=== PATIENT | female | born 1990 | race African-American/Black ===

== ENCOUNTER 2017-03-28 07:11 | Inpatient (IN) ==
[2017-03-28] MEDS: LACTATED RINGERS 1,000 ML IV SCH ×2 (07:47→16:32)
[2017-03-28] MEDS ORDERED: ceFAZolin 2,000 MG in PREMIX 1 EACH IV ONE (08:02)
[2017-03-28] MEDS ORDERED: FAMOTIDINE 20 MG/2 ML VIAL IV ONE (08:02)
[2017-03-28] MEDS ORDERED: CITRIC ACID/SODIUM CITRATE 30 ML UDCUP PO ONE (08:02)
[2017-03-28] MEDS ORDERED: OXYTOCIN/LR 30 UNIT/1,000 ML BAG IV ONE (08:07)
[2017-03-28] MEDS ORDERED: OXYTOCIN 10 UNIT/ML VIAL IM ONE (08:07)
[2017-03-28] MEDS ORDERED: OXYTOCIN/LR 20 UNIT/1,000 ML BAG IV ONE ×2 (08:10→14:32)
--- NOTE | 2017-03-28 08:12 | OB/GYN History & Physical ---
History of Present Illness Chief complaint: In for repeat section. History of present illness: Ms. Man is a 26 year old female MARGARITO 917 for an estimated gestational age of 39 weeks and 2 days. The patient presents for elective repeat section due to previous section 3. She received her at the [facility]. Her course was uneventful and she received routine care. The risk and benefits has been thoroughly discussed with this patient and significant other, plan of care has been discussed with Dr. Mchugh and all parties are in agreement with plan. The patient has had 3 previous section she reported no complications with her pregnancies. lab: She is O+, rubella is immune, RPR is nonreactive, hepatitis B is negative, HIV is negative, GBS culture positive. Review of systems is negative with exception of previous section 3. Home Medications Medication Instructions Recorded Confirmed Type No Known Home Medications [No 01/20/17 01/20/17 History Known Home Medications] Allergies Allergy/AdvReac Type Severity Reaction Status Date / Time No Known Allergies Allergy Verified 01/20/17 01:13 12 point system: reviewed and no additional remarkable complaints except as stated Medical,Surgical,& Family Hx - Medical History Neurology: History of: Seizures Reproductive: History of: Sexually Transmitted Disorders (Chlamydia) - Surgical History Abdominal Surgeries: Surgical HX of: Abdominal Surgery Reproductive Surgeries: Surgical HX of;: Section (Previous 3) - Family History Family History: Reports;: Family Cancer (Father prostate), Family Diabetes ( Father), Family Hypertension (Father) - Social History Smoking Status: Never smoker Have you smoked in the last 12 months: No Marital Status: Single Lives With:: Significant Other Functional capacity: independent ambulation 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 General appearance: no acute distress - Antepartum / Post Antepartum Exam Cervix - Dilatation: Deferred Abdomen obstetrics: Present: bowel sounds normal Vagina: Present: normal moisture Uterus exam: Present: enlarged - Respiratory Respiratory exam: Present: clear to auscultation bilaterally - Cardiovascular Cardiovascular exam: Present: regular rate and rhythm - GI/Abdominal GI/Abdominal exam: Present: normal bowel sounds, soft - Extremities Exam Extremities exam: Present: normal inspection - Neurological Exam Neurological exam: Present: alert, oriented X3 - Psychiatric Psychiatric exam: Present: normal affect, normal mood - Skin Skin exam: Present: normal color, warm Assessment and Plan (1) Previous section Status: Acute Assessment and plan: Admit IV fluids Informed consent and preop for repeat section per Dr. Mchugh Anticipate delivery of a viable . Current Visit: Yes
[2017-03-28 08:29] LABS: Basophils % 0.4 % (0.0-0.8); Eosinophils # 0.2 10*3/uL (0.0-0.87); Eosinophils % 2.9 % (0.00-10.9); Hematocrit 33.9 VOL% (35.7-47.0); Immature Granulocytes % 0.3 %; Immature Granulocytes Absolute 0.02 #; Lymphocytes # 2.5 10*3/uL (1.4-4.0); Lymphocytes % 34.3 % (21.3-54.2); Mean Corpuscular HGB Conc 32.4 GM/DL (32-36); Mean Corpuscular Hemoglobin 28 PG (27-34); Mean Corpuscular Volume 85.6 FL (87-102); Mean Platelet Volume 9.9 FL (9.6-12.0); Monocytes # 0.7 10*3/uL (0.11-0.8); Monocytes % 9.1 % (1.7-12.7); Neutrophils # 3.8 10*3/uL (1.4-7.4); Platelet Count 251 T/CUMM (130-400); Red Blood Count 3.96 MC/CUMM (3.8-5.5); White Blood Count 7.2 T/CUMM (4-12)
[2017-03-28 08:56] LABS: Albumin 2.7 G/DL (3.4-5.0); Bilirubin,Total 0.7 MG/DL (0.2-1.0); Osmolality,Calculated 274.4 MOS/KG (273-304); Potassium 4.4 MMOL/L (3.5-5.1); Total Protein 7.1 G/DL (6.4-8.3)
[2017-03-28 09:01] LABS: Apearance,Urine CLEAR (Clear); Bilirubin,Urine Negative (Negative); Blood, Urine Negative (Negative); Glucose,Urine (UA) Negative (Negative); Ketones,Urine Negative (Negative); Mucus,Urine Occasional /LPF (Occasional); Nitrite,Urine Negative (Negative); Protein,Urine Negative; RBC,Urine 1 /HPF (0-4); Squamous Epithelial Cell,Urine Occasional /HPF (0-10); Urine Color Yellow (Yellow); Urine Specific Gravity 1.017 (1.001-1.035); WBC,Urine 1 /HPF (0-6)
[2017-03-28] MEDS ORDERED: ONDANSETRON 4 MG/2 ML VIAL ONE (13:07)
[2017-03-28] MEDS ORDERED: PHENYLEPHRINE 1 MG/10 ML SYRINGE IV ONE (13:07)
--- NOTE | 2017-03-28 14:31 | Operative Note ---
Date of procedure: 03/28/17 Procedure: Preoperative diagnosis: Elective sterilization, repeat section Postoperative diagnosis: Same Anesthesia:[] Regional anesthesia Estimated blood loss: [] 500 Surgeon: Dr. Mchugh Findings: [] Severe abdominal uterine bowel omental adhesions obliterating the abdominal wall, 7 lbs. 2 oz. , Apgars is 91 minute 9 at 5 minute, was at 1351, Complications: None Procedure: Low transverse section, bilateral tubal ligations, lysis of abdominal wall adhesions The patient was taken to the operating suite heart tones were obtained prior to and after regional anesthesia was obtained. She was placed in supine position her abdomen was prepped and draped in usual manner for major abdominal surgery. Through an abdominal incision the skin, subcutaneous, fascial layer and peritoneal the abdomen was entered. The bladder flap was created and a low transverse incision was made.. Fluid was clear and normal amount X, Apgars, the placenta was delivered and sent to lab for further evaluation. Injected with intrauterine Pitocin. The first layer of the uterus was closed with #1 Vicryl in a continuous locking manner. Close to imbricate the first layer with #1 Vicryl. The peritoneum was approximated with #2-0 Vicryl.[Fallopian tube were grasped with a Anayeli clamp. Into the avascular region the was perforated. Proximal distal end of tube was ligated. Segment in between was excised and cauterized] All the last sponges and instruments were accounted for -2.) #2-0 Vicryl. Fascia was approximated with #0-0 Maxon.. The skin was approximated with lyla. She tolerated procedure well and was taken to recovery room in stable condition. Surgeon / Physician: Jose Mchugh Results - Labs CBC & BMP: 03/28/17 08:18 03/28/17 08:18 Discharge Plan - Discharge Medications No Action Vits #90/Iron Fum/FA [ Formula Tablet] 1 tablet PO DAILY - Follow Up or Referral - Forms/Instructions
[2017-03-28] MEDS ORDERED: SIMETHICONE CHEW 80 MG TABLET PO PRN (14:32)
[2017-03-28] MEDS ORDERED: RHO(D) IMMUNE GLOBULIN 300 MCG SYRINGE IM ONE (14:32)
[2017-03-28] MEDS ORDERED: ACETAMINOPHEN 325 MG TABLET PO PRN (14:32)
[2017-03-28] MEDS ORDERED: ONDANSETRON 4 MG/2 ML VIAL IV PRN (14:32)
[2017-03-28] MEDS ORDERED: fentaNYL 100 MCG/2 ML VIAL ONE (14:40)
[2017-03-28 14:45] LABS: Cord Venous Blood HCO3 20.5 MMOL/L; Cord Venous Blood PCO2 51.9 MMHG; Cord Venous Blood PO2 22.9
[2017-03-28] MEDS ORDERED: HYDROmorphone 2 MG/1 ML VIAL IV PRN (14:45)
--- NOTE | 2017-03-28 14:46 | Anesthesia Post-Op ---
Anesthesia Post OP - Post Ansesthetic Evaluation Patient seen in post op: Yes Resp: within normal limits CV: within normal limits Mental: within normal limits Temp: within normal limits Xlim-Il-Kevqnkxdm: within normal limits Nausea and Vomiting: within normal limits Pain: within normal limits
[2017-03-28] MEDS ORDERED: MORPHINE 10 MG/10 ML VIAL ONE (14:53)
[2017-03-28] MEDS: IBUPROFEN 800 MG TABLET PO PRN (16:45)
[2017-03-28] MEDS ORDERED: PROMETHAZINE 25 MG/1 ML VIAL IM PRN (20:29)
[2017-03-28 22:06] LABS: Basophils % 0.2 % (0.0-0.8); Eosinophils % 0.1 % (0.00-10.9); Hematocrit 23.1 VOL% (35.7-47.0); Hemoglobin 7.8 GM/DL (12.0-16.0); Immature Granulocytes % 0.4 %; Immature Granulocytes Absolute 0.05 #; Lymphocytes # 1.7 10*3/uL (1.4-4.0); Lymphocytes % 13.1 % (21.3-54.2); Mean Corpuscular HGB Conc 33.8 GM/DL (32-36); Mean Corpuscular Hemoglobin 29 PG (27-34); Mean Corpuscular Volume 84.9 FL (87-102); Mean Platelet Volume 9.5 FL (9.6-12.0); Monocytes # 1.4 10*3/uL (0.11-0.8); Monocytes % 10.5 % (1.7-12.7); Neutrophils % 75.7 % (38.7-73.9); Platelet Count 250 T/CUMM (130-400); Red Blood Count 2.72 MC/CUMM (3.8-5.5); Red Cell Distribution Width 14.1 % (9.3-17.3); White Blood Count 13.2 T/CUMM (4-12)
[2017-03-29] MEDS: LACTATED RINGERS 1,000 ML IV SCH ×2 (01:30→10:43)
[2017-03-29 04:59] LABS: Basophils % 0.1 % (0.0-0.8); Eosinophils % 0.1 % (0.00-10.9); Hematocrit 20.6 VOL% (35.7-47.0); Hemoglobin 6.8 GM/DL (12.0-16.0); Immature Granulocytes % 0.4 %; Immature Granulocytes Absolute 0.04 #; Lymphocytes # 1.2 10*3/uL (1.4-4.0); Lymphocytes % 10.5 % (21.3-54.2); Mean Corpuscular Hemoglobin 29 PG (27-34); Mean Corpuscular Volume 86.2 FL (87-102); Mean Platelet Volume 9.7 FL (9.6-12.0); Monocytes # 1.1 10*3/uL (0.11-0.8); Monocytes % 10.2 % (1.7-12.7); Neutrophils # 8.6 10*3/uL (1.4-7.4); Neutrophils % 78.7 % (38.7-73.9); Platelet Count 227 T/CUMM (130-400); Red Blood Count 2.39 MC/CUMM (3.8-5.5); Red Cell Distribution Width 13.9 % (9.3-17.3)
[2017-03-29 05:23] LABS: Band Neutrophils 6 % (0-10); Eosinophils 1 % (0-10); Hypochromasia 1+; Lymphocytes 12 % (20-55); Microcytosis 1+; Polychromasia Slight; Segmented Neutrophils 74 % (50-85); Total Cells Counted 100
[2017-03-29 05:24] LABS: Platelet Estimate Normal
[2017-03-29] MEDS ORDERED: SODIUM CHLORIDE 0.9% 250 ML IV PRN (06:55)
[2017-03-29] MEDS: DOCUSATE SODIUM 100 MG CAPSULE PO SCH ×3 (07:14→21:03)
[2017-03-29] MEDS: MULTIVITAMIN (PRENATAL) TABLET PO SCH (09:35)
[2017-03-29] MEDS: IBUPROFEN 800 MG TABLET PO PRN (09:36)
--- NOTE | 2017-03-29 09:37 | OB/GYN Progress Note ---
Assessment and Plan (1) Previous section Status: Acute Assessment and plan: Admit IV fluids Informed consent and preop for repeat section per Dr. Mchugh Anticipate delivery of a viable . Current Visit: Yes (2) Status post repeat low transverse section Status: Acute Assessment and plan: Initiate routine postop orders. 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 Bonding well with . Exam BEAM RACKER - Constitutional Vitals: Vital Signs Temp Pulse Pulse Resp BP BP Pulse Ox 03/29/17 09:31 98.1 F 80 20 107/58 100 03/29/17 07:28 97.4 F L 74 18 112/55 03/29/17 03:00 18 03/28/17 19:30 97.1 F L 72 18 88/51 03/28/17 18:30 59 L 18 101/54 03/28/17 17:30 53 L 18 109/54 03/28/17 17:00 50 L 18 120/69 03/28/17 16:30 96.7 F L 50 L 18 123/56 Pulse Ox 03/29/17 09:31 03/29/17 07:28 99 03/29/17 03:00 03/28/17 19:30 99 03/28/17 18:30 99 03/28/17 17:30 100 03/28/17 17:00 100 03/28/17 16:30 100 General appearance: no acute distress - Antepartum / Post Post Exam Breast: bilateral: normal Abdomen obstetrics: Present: bowel sounds normal Vagina: Present: normal moisture, discharge (Light lochia room) Cervix: Present: normal Uterus exam: Present: enlarged (Fundus firm midline) - Gyencological / Post Surgical Post Surgical Exam Lungs: bilateral: normal Chest: Normal S1, Normal S2 Extremities BEAM RACKER: Present: normal Abdomen obstetrics progress note: Present: normal appearance, soft Incision OB: Present: normal, intact - Respiratory Respiratory exam: Present: clear to auscultation bilaterally - Cardiovascular Cardiovascular exam: Present: regular rate and rhythm - GI/Abdominal GI/Abdominal exam: Present: normal bowel sounds, soft - Extremities Exam Extremities exam: Present: normal inspection - Neurological Exam Neurological exam: Present: alert, oriented X3 - Psychiatric Psychiatric exam: Present: normal affect, normal mood - Skin Skin exam: Present: normal color, warm Results - Labs CBC & BMP: 03/29/17 04:34 03/28/17 08:18
[2017-03-29] MEDS: FERROUS SULFATE 325 MG TABLET PO SCH ×2 (10:18→21:03)
[2017-03-29 15:41] LABS: Hematocrit 31.8 VOL% (35.7-47.0); Hemoglobin 11.1 GM/DL (12.0-16.0)
[2017-03-29] MEDS: MAGNESIUM HYDROXIDE SUSP 30 ML UDCUP PO PRN (21:03)
[2017-03-30] MEDS: MULTIVITAMIN (PRENATAL) TABLET PO SCH (09:11)
[2017-03-30] MEDS: FERROUS SULFATE 325 MG TABLET PO SCH (09:12)
[2017-03-30] MEDS: MAGNESIUM HYDROXIDE SUSP 30 ML UDCUP PO PRN (09:12)
[2017-03-30] MEDS: DOCUSATE SODIUM 100 MG CAPSULE PO SCH (09:12)
--- NOTE | 2017-03-30 10:31 | Discharge Summary ---
Hospital Course - Hospital Course Hospital Course: Ms. Man presented for a repeat section due to previous section. She also had a bilateral tubal ligation. She has followed a routine postoperative course with the exception of being anemic. She did receive 2 units of packed red blood cells because of this. Her hemoglobin and hematocrit are stable. As her other vital signs and lab values are also stable. Her incision is well approximated without signs of infection. Her fundus is firm and midline. Her bleeding is minimal with no odor. She denies any pain in her legs. She is ambulating without difficulty. She has been well with her infant. The patient desires to go home 2 days postoperatively. She is stable. She will be discharged home with prescriptions for pain and a follow-up appointment in our office. Bilateral tubal ligation was her plan of care for contraception. Specialty Discharge - Follow Up or Referrals Follow up with: Jose Mchugh MD [Physician] - 2 Weeks Discharge Plan - Discharge Data Disposition: Disch To Home/Self Care Condition at Discharge: Stable Discharge Diet: advance to your usual diet, regular diet Activity: increase activity as tolerated, no lifting, no prolonged standing Weight Bearing at Discharge: partial weight bearing Driving: not until seen by doctor Contact your physician if you experience:: fever over 101, pain uncontrolled by pain medications - Discharge Medications New Ferrous Sulfate Tab [Feosol Original Tab] 325 mg PO BID #60 tablet HYDROcodone/ACETAMIN 5-325 [[place] 5-325] 2 tablet PO Q6H PRN #30 tablet PRN Reason: Pain Severe (8-10) Ibuprofen Tab [Motrin Tab] 800 mg PO Q8H PRN #30 tablet PRN Reason: Pain Severe (8-10) No Action Vits #90/Iron Fum/FA [ Formula Tablet] 1 tablet PO DAILY - Follow Up or Referral - Forms/Instructions Exam - Constitutional Vitals: Period Temp Pulse Resp BP Sys/Caraballo Pulse Ox Last 24 Hr 96.4 F-98.6 F 72-92 16-20 87-139/46-70 98-99 General appearance: no acute distress - Head Head exam: Present: normal inspection - Respiratory Respiratory exam: Present: clear to auscultation bilaterally - Cardiovascular Cardiovascular exam: Present: regular rate and rhythm - GI/Abdominal GI/Abdominal exam: Present: normal bowel sounds, soft - Extremities Exam Extremities exam: Present: normal inspection - Back Exam Back exam: Present: normal inspection - Neurological Exam Neurological exam: Present: alert, oriented X3 - Psychiatric Psychiatric exam: Present: normal affect, normal mood - Skin Skin exam: Present: normal color, warm Discharge Results Labs on day of discharge: Labs from last 24 hours 03/29/17 03/29/17 15:26 04:34 Hgb 11.1 L D Hct 31.8 L Blood Type Cancelled Antibody Screen Cancelled Crossmatch See Detail Blood Bank Comment Cancelled DS: Provider Date of admission: 03/28/17 08:02 Primary care physician: . No PCP Attending physician on admission: Jose Mchugh MD Consults: 03/28/17 08:02 Consult to Anesthesiology [CONS] Routine Consulting Provider: Reason for Anesthesiology: Pre-op Clearance 03/28/17 14:32 Consult to Construction Tech [CONS] Routine Consult Construction Tech: Breast Feeding Discharging clinician: Jose Mchugh MD Expected date of discharge: 03/30/17
[2017-03-30 11:31] VITALS: BP 114/60
[2017-03-30] MEDS ORDERED: DIPH/TET/ACEL PERT BOOSTER VACCINE 0.5 ML VIAL IM ONE (11:38)
== END 2017-03-30 15:45 | disposition home or self-care (01) | DRG 540 ==
LOC: N.LDOUT 07:11 → N.LD 07:13 → N.OB 16:22
PROVIDERS: ADMIT Obstetrics & Gynecology; ATTEND Obstetrics & Gynecology